=== PATIENT | female | born 1955 | race Caucasian/White ===

== ENCOUNTER → 2018-09-05 | Day surgery (SDC) | payer OTHER ==
[2018-09-02 15:11] LABS: BASOPHILS # (AUTO) 0.1 (0.0-0.1); BASOPHILS % 1.1 % (0.0-1.0); EOSINOPHILS # (AUTO) 0.3 (0.0-0.4); EOSINOPHILS % 6.1 % (0.0-6.0); HEMATOCRIT 42.4 % (34.2-44.1); HEMOGLOBIN 14.3 g/dL (12.0-16.0); LYMPHOCYTES # (AUTO) 1.7 (1.0-3.2); LYMPHOCYTES % 37.2 % (18.0-39.1); MEAN CORPUSCULAR HEMOGLOBIN 31.4 pg (28-32); MEAN CORPUSCULAR HGB CONC 33.7 g/dL (31-35); MEAN CORPUSCULAR VOLUME 93.2 fL (81-99); MONOCYTES # (AUTO) 0.5 (0.2-0.8); MONOCYTES % 11.6 % (4.4-11.3); NEUTROPHILS % 43.8 % (38.7-80.0); PLATELET COUNT 197 x10e3/uL (140-360); RED BLOOD COUNT 4.55 x10e6/uL (3.6-5.1)
[2018-09-02 15:23] LABS: INR 0.88; PARTIAL THROMBOPLASTIN TIME 31.7 seconds (23.8-35.5); PROTHROMBIN TIME 12.4 seconds (11.9-14.5)
[2018-09-02 15:33] LABS: ALANINE AMINOTRANSFERASE 17 IU/L (0-55); ALBUMIN 3.5 g/dL (3.5-5.0); ALKALINE PHOSPHATASE 107 IU/L (40-150); ANION GAP 12.4 mmol/L (8-16); BLOOD UREA NITROGEN 16 mg/dL (7-26); BUN/CREATININE RATIO 20 (6-25); CALCIUM 10.5 mg/dL (8.4-10.2); CARBON DIOXIDE 27 mmol/L (22-29); CHLORIDE 105 mmol/L (98-107); EST GLOMERULAR FILTRATION RATE > 60 ML/MIN (60-); GLUCOSE 87 mg/dL (74-118); POTASSIUM 4.4 mmol/L (3.5-5.1); SODIUM 140 mmol/L (136-145)
[~2018-09-05] MED LIST: ACETAMINOPHEN 1000 MG/100 ML IV ONE; ANASTROZOLE1 MG PO; BACITRACIN 50,000 UNIT VIAL ONE; CEFAZOLIN SOD 1 GM/NS 50ML 50 ML IV ONE; DEXAMETHASONE SOD PHOS INJ 4 MG/ML VIAL ONE; FENTANYL CITRATE/PF 100MCG/2 ML INJ ONE; KETOROLAC TROMETHAMINE 30 MG/ML VIAL ONE; LIDOCAINE HCL 2% LOCAL INJ 5 ML SDV VIAL INJ ONE; MIDAZOLAM HCL 2 MG/2 ML VIAL ONE; ONDANSETRON HCL INJ 2MG/ML 2ML 2 MG/ML VIAL ONE; PHENYLEPHRINE HCL 1% 10 MG/ML VIAL ONE; PROPOFOL IV EMULSION 10 MG/ML 20 ML VIAL ONE; SEVOFLURANE INHAL SOLN 250 ML PEN BTL ONE; VALACYCLOVIR500 MG PO; VITAMIN C500 MG PO; [UNRECOGNIZED DRUG - OTHER] PO; [UNRECOGNIZED DRUG - OTHER] PO
--- OUTSIDE RECORDS SUMMARY | 2018-09-05 05:59 | XMS REPORT ---
Author Author [facility] Address Unknown Phone Unavailable Care Team Providers Care Tongue Presser Name Role Phone Unavailable Unavailable Payers Payer Name Policy Type Policy Number Effective Date Expiration Date Problems This patient has no known problems. Allergies, Adverse Reactions, Alerts This patient has no known allergies or adverse reactions. Medications This patient has no known medications. Results Test Description Test Time Test Comments Text Results Atomic Results Result Comments SURGICAL SPECIMENS 2018-02-19 08:06:00 RUN DATE: 02/19/18 [facility] *LIVE* PAGE 1 RUN TIME: 08 Specimen Inquiry RUN USER: INTERFACE PATIENT: OSVALDO LOVELACE LOC: StefanyTESS U #: [id number] AGE/SX: 62/F ROOM: RE02/13/18JASON DR: Arielle Provider : 53 BED: DIS: STATUS: PRE REF TLOC: SPEC #: [id number] RECD: 02/14/18 STATUS: HERSON TADEO #: [id number] YVES: 02/14/[address]: Undefined Provider ENTERED: 02/19/18 SP TYPE: SURG SPEC OTHR DR: No Primary or Family PhysicianORDERED: LEVEL 4 CODES: [id number] - BREAST, NOS COPIES TO: No Primary or Family Physician Undefined Provider PROCEDURES: LEVEL 4 (Incomplete) TISSUES: 1. BREAST, NOS - Breast, left 12:00, 8 cm FN, core bx. 2. BREAST, NOS - Breast, left, 2:00, 6 cm FN, core bx. 3. BREAST, NOS - Breast, left, 3:00 RA, core bx. FINAL DIAGNOSIS Breast, left, 12:00, 8 cm FN, core bx.: Infiltrating ductal carcinoma, Skip grade 2, 0.8 cm in greatest dimension; foci of DCIS, cribriform type, high grade; lymphovascular invasion identified, ancillary studies to follow. Breast, left, 2:00, 6 cm FN, core bx.: Fibrocystic changes, no definite malignancy identified. Breast, left, 3:00 RA, core bx.: Infiltrating ductal carcinoma, Skip grade 2, 0.4 cm in greatest dimension; foci of DCIS, high-grade with comedo necrosis; no definite lymphovascular invasion is identified; ancillary studies to follow. GROSS AND MICROSCOPIC GROSS EXAMINATION: Received in formalin labeled left breast 12:00 is a 1.5 cm aggregate of fibroadipose tissue (A). Received in formalin labeled left breast 2:00 is a 2.1 cm aggregate of fibroadipose tissue (B). Received in formalin labeled left breast 3:00 retroareolar is a 1.6 cm aggregate of fibroadipose tissue (C). MICROSCOPIC EXAMINATION: Sections of the left breast tissue at 12:00 reveal an infiltrating adenocarcinoma with areas forming single file cells. There CONTINUED ON NEXT PAGE RUN DATE: 02/19/18 [facility] *LIVE* PAGE 2 RUN TIME: 805 Specimen Inquiry RUN USER: INTERFACE SPEC #: [id number] PATIENT: OSVALDO LOVELACE #[id number] (Continued) GROSS AND MICROSCOPIC (Continued) is background ductal carcinoma in situ present. The largest area of tumor is 0.8 cm. The cells are diffusely positive for e-cadherin; negative for 72vwtqG15. Sections of the left breast tissue from 2:00 reveal areas of fibrosis with duct ectasia and papillary apocrine metaplasia. No definite malignancy is identified. Sections of the left breast tissue from 3:00 reveal similar malignant cells to those seen at 12:00. There are also areas of ductal carcinoma in situ with comedo necrosis. The cells are also diffusely positive for e-cadherin; negative for 02zrymU94. (When special stains have been reviewed, the appropriate positive/negative controls have been reviewed and are appropriately positive/negative). POST-OP DIAGNOSIS Site I II: ATEC MARKERS, III: ULTRACLIP-coil PRE-OP DIAGNOSIS 12:00 and 3:00 suspicious for malignancy, 2:00 indeterminate REVIEWED BY: REED - Signed SIGNATURE ON FILE ChristineNikolay DO 02/19/18805 END OF REPORT SURGICAL SPECIMENS 2018-02-19 08:06:00 RUN DATE: 02/28/18 [facility] *LIVE* PAGE 1 RUN TIME: 820 Specimen Inquiry RUN USER: INTERFACE PATIENT: OSVALDO LOVELACE LOC: XIOMARA U #: [id number] AGE/SX: 62/F ROOM: RE02/13/18REG DR: Undefined Provider : 53 BED: DIS: STATUS: PRE REF TLOC: SPEC #: [id number] RECD: 02/14/18 STATUS: HERSON CARLYLE #: [id number] YVES: 02/14/[address]: Undefined Provider ENTERED: 02/19/18 SP TYPE: SURG SPEC OTHR DR: No Primary or Family PhysicianORDERED: LEVEL 4 CODES: [id number] - BREAST, NOS COPIES TO: No Primary or Family Physician Undefined Provider PROCEDURES: GM LEVEL 4 (Incomplete) TISSUES: 1. BREAST, NOS - Breast, left 12:00, 8 cm FN, core bx. 2. BREAST, NOS - Breast, left, 2:00, 6 cm FN, core bx. 3. BREAST, NOS - Breast, left, 3:00 RA, core bx. ADDENDUM FINDINGS Addendum #1 Entered: 02/21/18 Left 12:00 (A) ER: POSITIVE Tumor Stained: 100% Intensity: 3+ Juan Score: 8 DE: POSITIVE Tumor Stained: 98% Intensity: 3+ Juan Score: 8 Her2/rasta: NEGATIVE Score: 1+ Ki-67: LOW Tumor Stained: 9% Intensity: 3+ p53: NEGATIVE Tumor Stained: 1% Intensity: 1+ REFERENCE RANGES: ER > 1%-Positive; < 1%-Negative. DE > 1%-Positive; < 1%- Negative. Ki-67 < 10%-Low proliferative index; >=10% and <=20%-Intermediate proliferative index; > 20%-High proliferative index. p53 < 10%-Negative; >=10%-Positive. Her2/rasta 7-9-Lrfovdar; 3-lazvlqkld-mhcnez FISH study; 3+- Positive. These tests were performed by IHC in conjunction with the Rafter ScopeIA/APERIO. The material was formalin fixed (6-72 hours), paraffin embedded. While some antibodies have not been approved by the FDA, clearance/approval is not mandated. These antibodies are well documented and clinically accepted prognostic indicators. Known positive and negative CONTINUED ON NEXT PAGE RUN DATE: 02/28/18 [facility] *LIVE* PAGE 2 RUN TIME: 820 Specimen Inquiry RUN USER: INTERFACE SPEC #: [id number] PATIENT: OSVALDO LOVELACE #[id number] (Continued) ADDENDUM FINDINGS (Continued) control tissue shows appropriate staining. Above prognostic marker results to be used in context with clinical/pathological findings. The [employer] [place] [employer] (CAP) and the [place] Society of Clinical Oncology (ASCO) joint guideline on testing for Her2/Rasta status in invasive breast cancer is used to determine if FISH studies are necessary. Please see outside consultation report for clone/intended use, vendor, staining pattern, and QC status. Left 3:00 (C) ER: POSITIVE Tumor Stained: 100% Intensity: 3+ Juan Score: 8 DE: POSITIVE Tumor Stained: 25% Intensity: 1+ Juan Score: 4 Her2/rasta: NEGATIVE Score: 1+ Ki-67: HIGH Tumor Stained: 28% Intensity: 3+ p53: NEGATIVE Tumor Stained: 0% Intensity: 0 REFERENCE RANGES: ER > 1%-Positive; < 1%-Negative. DE > 1%-Positive; < 1%-Negative. Ki-67 < 10%-Low proliferative index; >=10% and <=20%-Intermediate proliferative index; > 20%-High proliferative index. p53 < 10%-Negative; >=10%-Positive. Her2/rasta 8-4-Vpgvxqot; 5-gcwwuzfnr-kffoda FISH study; 3+-Positive. These tests were performed by IHC in conjunction with the Rafter ScopeIA/APERIO. The material was formalin fixed (6- 72 hours), paraffin embedded. While some antibodies have not been approved by the FDA, clearance/approval is not mandated. These antibodies are well documented and clinically accepted prognostic indicators. Known positive and negative control tissue shows appropriate staining. Above prognostic marker results to be used in context with clinical/pathological findings. The [employer] [place] [employer] (CAP) and the [place] Society of Clinical Oncology (ASCO) joint guideline on testing for Her2/Rasta status in invasive breast cancer is used to determine if FISH studies are necessary. Please see outside consultation report for clone/intended use, vendor, staining pattern, and QC status. Addendum Signed SIGNATURE ON FILE Nikolay King DO 02/28/18 0820 ------- CONTINUED ON NEXT PAGE RUN DATE: 02/28/18 [facility] *LIVE* PAGE 3 RUN TIME: 820 Specimen Inquiry RUN USER: INTERFACE SPEC #: [id number] PATIENT: OSVALDO LOVELACE #[id number] (Continued) FINAL DIAGNOSIS Breast, left, 12:00, 8 cm FN, core bx.: Infiltrating ductal carcinoma, [place] grade 2, 0.8 cm in greatest dimension; foci of DCIS, cribriform type, high grade; lymphovascular invasion identified, ancillary studies to follow. Breast, left, 2:00, 6 cm FN, core bx.: Fibrocystic changes, no definite malignancy identified. Breast, left, 3:00 RA, core bx.: Infiltrating ductal carcinoma, Skip grade 2, 0.4 cm in greatest dimension; foci of DCIS, high-grade with comedo necrosis; no definite lymphovascular invasion is identified; ancillary studies to follow. GROSS AND MICROSCOPIC GROSS EXAMINATION: Received in formalin labeled left breast 12:00 is a 1.5 cm aggregate of fibroadipose tissue (A). Received in formalin labeled left breast 2:00 is a 2.1 cm aggregate of fibroadipose tissue (B). Received in formalin labeled left breast 3:00 retroareolar is a 1.6 cm aggregate of fibroadipose tissue (C). MICROSCOPIC EXAMINATION: Sections of the left breast tissue at 12:00 reveal an infiltrating adenocarcinoma with areas forming single file cells. There is background ductal carcinoma in situ present. The largest area of tumor is 0.8 cm. The cells are diffusely positive for e-cadherin; negative for 21aquzZ12. Sections of the left breast tissue from 2:00 reveal areas of fibrosis with duct ectasia and papillary apocrine metaplasia. No definite malignancy is identified. Sections of the left breast tissue from 3:00 reveal similar malignant cells to those seen at 12:00. There are also areas of ductal carcinoma in situ with comedo necrosis. The cells are also diffusely positive for e-cadherin; negative for 24bkubH41. (When special stains have been reviewed, the appropriate positive/negative controls have been reviewed and are appropriately positive/negative). POST-OP DIAGNOSIS Site I II: ATEC MARKERS, III: ULTRACLIP-coil CONTINUED ON NEXT PAGE RUN DATE: 02/28/18 [facility] *LIVE* PAGE 4 RUN TIME: 820 Specimen Inquiry RUN USER: INTERFACE SPEC #: [id number] PATIENT: OSVALDO LOVELACE #[id number] (Continued) PRE-OP DIAGNOSIS 12:00 and 3:00 suspicious for malignancy, 2:00 indeterminate REVIEWED BY: REED Signed SIGNATURE ON FILE Nikolay King DO 02/19/18805 END OF REPORT SURGICAL SPECIMENS 2018-01-01 09:12:00 RUN DATE: 01/01/18 [facility] *LIVE* PAGE 1 RUN TIME: 911 Specimen Inquiry RUN USER: INTERFACE PATIENT: OSVALDO LOVELACE LOC: XIOMARA U #: [id number] AGE/SX: 62/F ROOM: RE12/24/17[facility] DR: Adam Rosario MD : 53 BED: DIS: STATUS: PRE REF TLOC: SPEC #: [id number] RECD: 12/25/17 STATUS: HERSON REQ #: [id number] YVES: 12/25/17 [facility] DR: Adam Rosario MD ENTERED: 12/29/17 SP TYPE: SURG SPEC OTHR DR: No Primary or Family PhysicianORDERED: GM LEVEL 4 CODES: [id number] - BREAST, NOS COPIES TO: No Primary or Family Physician Adam Rosario MD [address] [place] [address] [place] [address] PROCEDURES: GM LEVEL 4 (Incomplete) TISSUES: 1. BREAST, NOS - Breast, left, 11;00, 8 cm FN, core bx. 2. BREAST, NOS - Breast, left, 1;00, 8 cm FN, core bx. 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 Ancillary studies to follow. GROSS AND MICROSCOPIC GROSS EXAMINATION: Received in formalin labeled left breast 11:00 is a 2.1 cm aggregate of fibroadipose tissue (A). Received in formalin labeled left breast 1:00 is a 1 cm aggregate of fibroadipose tissue (B). MICROSCOPIC EXAMINATION: Sections of the left breast tissue from 11:00 reveal an atypical proliferation of monotonous cells in a papillary architecture. The atypical cells lack staining for 26ymmvB83 and CK5/6; the cells are positive for e-cadherin. There is minimal staining for p63. CONTINUED ON NEXT PAGE RUN DATE: 01/01/18 [facility] *LIVE* PAGE 2 RUN TIME: 911 Specimen Inquiry RUN USER: INTERFACE SPEC #: [id number] PATIENT: OSVALDO LOVELACE #[id number] (Continued) GROSS AND MICROSCOPIC (Continued) Sections of the left breast tissue from 1:00 show similar findings with an atypical proliferation of ductal epithelial cells. Portions of the tumor are in situ within the tissue with a maintained p63 basal layer, other areas show invasion measuring up to 0.6 cm with a lack of a basal layer. The epithelial cells similarly stain positive for e-cadherin and lack staining for 59faukI39 and CK5/6. (When special stains have been reviewed, the appropriate positive/negative controls have been reviewed and are appropriately positive/negative). POST- OP DIAGNOSIS Site I: ULTRACLIP-wing, II: SAIGE PRE-OP DIAGNOSIS Indeterminate mass and calcification REVIEWED BY: REED --------- Signed SIGNATURE ON FILE Nikolay King Ksenia COOLEY 01/01/18911 END OF REPORT SURGICAL SPECIMENS 2018-01-01 09:12:00 RUN DATE: 01/11/18 [facility] *LIVE* PAGE 1 RUN TIME: 920 Specimen Inquiry RUN USER: INTERFACE PATIENT: OSVALDO LOVELACE KIERAN LOC: [facility]ARA U #: [id number] AGE/SX: 62/F ROOM: RE12/24/17REG DR: Adam Rosario MD : 53 BED: DIS: STATUS: DEP REF TLOC: SPEC #: [id number] RECD: 12/25/17 STATUS: HERSON TADEO #: [id number] YVES: 12/25/17 [facility] DR: Adam Rosario MD ENTERED: 12/29/17 SP TYPE: SURG SPEC OTHR DR: No Primary or Family PhysicianORDERED: GM LEVEL 4 CODES: [id number] - BREAST, NOS COPIES TO: No Primary or Family Physician Adam Rosario [place] [address] PROCEDURES: GM LEVEL 4 (Incomplete) TISSUES: 1. BREAST, NOS - Breast, left, 11;00, 8 cm FN, core bx. 2. BREAST, NOS - Breast, left, 1;00, 8 cm FN, core bx. ADDENDUM FINDINGS Addendum #1 Entered: 01/11/18 Left Breast 11:00 HER2 FISH is Negative. Testing performed by [employer], see outside reports. Left breast 11:00 ER:POSITIVE Tumor Stained: 100% Intensity: 3+ Juan Score: 8 DE: POSITIVE Tumor Stained: 95% Intensity: 3+ Juan Score: 8 Her2/rasta: EQUIVOCAL Score: 2+ FISH is pending. Ki-67: LOW Tumor Stained: 4% Intensity: 3+ p53: NEGATIVE Tumor Stained: 1% Intensity: 1+ REFERENCE RANGES: ER > 1%-Positive; < 1%-Negative. DE > 1%-Positive; < 1%-Negative. Ki-67 < 10%- Low proliferative index; >=10% and <=20%-Intermediate proliferative index; > 20%-High proliferative index. p53 CONTINUED ON NEXT PAGE RUN DATE: 01/11/18 [facility] *LIVE* PAGE 2 RUN TIME: 920 Specimen Inquiry RUN USER: INTERFACE SPEC #: [id number] PATIENT: OSVALDO LOVELACE #[id number] (Continued) ADDENDUM FINDINGS (Continued) < 10%- Negative; >=10%-Positive. Her2/rasta 4-8-Miuztuvp; 0-mmnptswkg-vatopv FISH study; 3+-Positive. These tests were performed by IHC in conjunction with the Rafter ScopeIA/APERIO. The material was formalin fixed (6-72 hours), paraffin embedded. While some antibodies have not been approved by the FDA, clearance/approval is not mandated. These antibodies are well documented and clinically accepted prognostic indicators. Known positive and negative control tissue shows appropriate staining. Above prognostic marker results to be used in context with clinical/pathological findings. The College [employer] [place] [employer] (CAP) and the [place] Society of Clinical Oncology (ASCO) joint guideline on testing for Her2/Rasta status in invasive breast cancer is used to determine if FISH studies are necessary. Please see outside consultation report for clone/intended use, vendor, staining pattern, and QC status. B left breast 1:00 ER: POSITIVE Tumor Stained: 100% Intensity: 3+ Juan Score: 8 DE: POSITIVE Tumor Stained: 59% Intensity: 3+ Juan Score: 7 Her2/rasta: NEGATIVE Score: 1+ Ki-67: BORDERLINE Tumor Stained: 17% Intensity: 3+ p53: NEGATIVE Tumor Stained: 2% Intensity: 2+ REFERENCE RANGES: ER > 1%-Positive; < 1%-Negative. DE > 1%-Positive; < 1%-Negative. Ki-67 < 10%-Low proliferative index; >=10% and <=20%-Intermediate proliferative index; > 20%-High proliferative index. p53 < 10%-Negative; >=10%-Positive. Her2/rasta 1-5-Szmlajob; 4-poqccsurq-mpmwey FISH study; 3+- Positive. These tests were perfo rmed by IHC in conjunction with the Rafter ScopeIA/APERIO. The material was formalin fixed (6-72 hours), paraffin embedded. While some antibodies have not been approved by the FDA, clearance/approval is not mandated. These antibodies are well documented and clinically accepted prognostic indicators. Known positive and negative control tissue shows appropriate staining. Above prognostic marker results to be used in context with clinical/pathological findings. The [employer] [place] [employer] (CAP) and the [place] Society of Clinical Oncology (ASCO) joint guideline on testing for Her2/Rasta status in invasive breast cancer is used to determine if FISH studies are necessary. Please see outside consultation report for clone/intended use, vendor, staining pattern, and QC status. 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 Ancillary studies to follow. GROSS AND MICROSCOPIC GROSS EXAMINATION: Received in formalin labeled left breast 11:00 is a 2.1 cm aggregate of fibroadipose tissue (A). Received in formalin labeled left breast 1:00 is a 1 cm aggregate of fibroadipose tissue (B). MICROSCOPIC EXAMINATION: Sections of the left breast tissue from 11:00 reveal an atypical proliferation of monotonous cells in a papillary architecture. The atypical cells lack staining for 54wxwpV51 and CK5/6; the cells are positive for e-cadherin. There is minimal staining for p63. Sections of the left breast tissue from 1:00 show similar findings with an atypical proliferation of ductal epithelial cells. Portions of the tumor are in situ within the tissue with a maintained p63 basal layer, other areas show invasion measuring up to 0.6 cm with a lack of a basal layer. The epithelial cells similarly stain positive for e-cadherin and lack staining for 25ezhxF31 and CK5/6. (When special stains have been reviewed, the appropriate positive/negative controls have been reviewed and are appropriately positive/negative). POST- OP DIAGNOSIS Site I: ULTRACLIP-wing, II: SECURMARKER CONTINUED ON NEXT PAGE - RUN DATE: 01/11/18 [facility] *LIVE* PAGE 4 RUN TIME: 920 Specimen Inquiry RUN USER: INTERFACE SPEC #: [id number] PATIENT: OSVALDO LOVELACEERUM #[id number] (Continued) PRE-OP DIAGNOSIS Indeterminate mass and calcification REVIEWED BY: REED Signed SIGNATURE ON FILE Nikolay King DO 01/01/18 0912 END OF REPORT
[2018-09-05 10:50] VITALS: BP 114/83
--- NOTE | 2018-10-20 17:53 | Operative Report ---
DATE OF PROCEDURE: 09/05/2018 SURGEON: Jessenia Mcelroy MD PREOPERATIVE DIAGNOSES: 1. History of left breast cancer. 2. Acquired absence of left breast. POSTOPERATIVE DIAGNOSES: 1. History of left breast cancer. 2. Acquired absence of left breast. PROCEDURES PERFORMED: 1. Exchange of left breast tissue ground operations supervisor with permanent cohesive anatomically shaped silicone gel implant, [place] MemoryShape Tall Height Moderate Plus profile TM Plus 445 mL. #[id number]. 2. Revision of left breast reconstruction. 3. Left breast capsulotomy. ANESTHESIA: General endotracheal. INDICATIONS FOR SURGERY: This is a 62-year-old female who has a history of left breast cancer and earlier this year underwent left breast mastectomy and immediate reconstruction with tissue ground operations supervisor. The patient is currently presenting for exchange of left breast tissue ground operations supervisor with permanent cohesive anatomically shaped silicone gel breast implant and has selected TM Plus 445 mL [place] textured silicone gel implants. She also desires revision of left breast reconstruction and left breast capsulotomy. The risks, alternatives, and possible complications of the above procedure were explained to the patient. These include but are not limited to bleeding, infection, scarring, skin flap necrosis, capsule contracture, breast symmetry, exposure, failure of cohesive silicone gel breast implants, wound dehiscence, lymphoma of the breast pocket, unsatisfactory aesthetic result, and possible need for further surgery. The patient had an opportunity to ask questions and have her questions answered and agreed to proceed with the proposed procedure. PROCEDURE IN DETAIL: The patient was marked in the preoperative holding area. She was then taken to the operating room and placed supine on the operating table. After adequate general anesthesia, the patient's bilateral breasts were prepped and draped in the usual surgical fashion. The preoperative markings were rechecked. Attention was then turned to the patient's left breast. An incision was made vertically along the previous mastectomy incision with the help of #15 blade. Tissue was dissected down to breast capsule and the tissue ground operations supervisor was exposed. The tissue ground operations supervisor was then deflated and removed. The breast pocket was irrigated with normal saline with antibiotic solution. Extensive medial capsulotomy was then performed with the help of the BovCarrillo haynes, and Aravind retractor. The capsulotomy was also extended superiorly to release the contracture of the tissue ground operations supervisor. After completion of the capsulotomy, revision of left breast reconstruction was performed by closing the lateral breast pocket with interrupted 0 Ethibond sutures performing capsulorrhaphy. Once the lateral breast pocket was closed, the breast pocket was again irrigated with normal saline with antibiotic solution. A sizer was placed in the pocket and the 2 breasts were checked for symmetry. They appeared to be symmetric. 445 mL TM Plus Tall Height Moderate Plus profile cohesive silicone gel implant anatomically shaped by [place] was placed in the pocket. It was ensured that the orientation of the implant is in proper direction and the patient was placed in the sitting position and the 2 breasts were checked for symmetry. They appeared to be symmetric. The mastectomy incision was then closed with 2 layers of interrupted 3-0 Vicryl sutures and a running subcuticular 3-0 Monoderm Quill suture. At the end of the case, all skin flaps and both breasts appeared viable. The incision was covered with Xeroform, ABD pads, and the patient was wrapped with a large 6-inch Mekhi wrap. She tolerated the procedure well. There were no immediate complications. The needle and instrument count was correct at the end of the case and she was transferred extubated to the recovery room. MD CECIL Modi/MODL /[id number]
== END | disposition home or self-care (01) ==
LOC: OR 05:54
PROVIDERS: ATTEND Plastic Surgery
DX: Z45.812 Encounter for adjustment or removal of left breast implant (principal); Z85.3 Personal history of malignant neoplasm of breast; Z90.12 Acquired absence of left breast and nipple; Z01.810 Encounter for preprocedural cardiovascular examination; Z01.812 Encounter for preprocedural laboratory examination
CPT/HCPCS: 19342; 36415; 80053; 85025; 85610; 85730; 93005; J0131; J0690; J1100; J1885; J2001; J2250; J2370; J2405; J2704; J3010; L8600